=== PATIENT | female | born 1990 | race Caucasian/White ===

== ENCOUNTER 2020-11-25 13:14 | Emergency (ER) | payer MEDICAID ==
[~2020-11-25] VITALS: Ht 160 cm; Wt 82.6 kg
[2020-11-25 13:15] VITALS: BP_SYST 125
[2020-11-25 13:50] LABS: BASOPHILS % (AUTO) 0.6 % (0.0-2.0); EOSINOPHILS # (AUTO) 0.1 K/uL (0.0-0.4); EOSINOPHILS % (AUTO) 1.6 % (0.0-4.0); HEMATOCRIT 41.2 % (36-48); HEMOGLOBIN 13.6 g/dL (12.0-16.0); LYMPHOCYTES % (AUTO) 30.3 % (20.5-51.5); MEAN CORPUSCULAR HEMOGLOBIN 29 pg (27-31); MEAN CORPUSCULAR HGB CONC 33 % (32-36); MEAN CORPUSCULAR VOLUME 87 fL (79.0-98.0); MONOCYTES # (AUTO) 0.4 K/uL (0.0-1.0); MONOCYTES % (AUTO) 6.5 % (1.7-9.3); PLATELET COUNT (AUTO) 351 K/uL (130-430); RED BLOOD CELL COUNT(AUTO) 4.71 MIL/uL (4.2-6.2); RED CELL DISTRIBUTION WIDTH 13.2 % (9.0-15.0); WHITE BLOOD COUNT (AUTO) 6.6 K/uL (4.8-10.8)
[2020-11-25 13:58] LABS: ANION GAP 10 (5-15); CALCIUM 8.8 mg/dL (8.4-11.0); CHLORIDE 104 mmol/L (98-107); CREATININE 0.71 mg/dL (0.55-1.30); GLUCOSE 99 mg/dL (70-99); POTASSIUM 4.2 mmol/L (3.5-5.1); SODIUM SERUM 140 mmol/L (136-145); UREA NITROGEN, BLOOD 7 mg/dL (8-21)
[2020-11-25 13:59] LABS: GFR AFRICAN AMERICAN 126 mL/min (>90)
[2020-11-25] MEDS ORDERED: KETOROLAC TROMETHAMINE 60 MG/2 ML VIAL IM ONE (14:30)
[2020-11-25 15:00] VITALS: BP_SYST 125
== END 2020-11-25 15:00 | disposition home or self-care (01) ==
LOC: SED 13:14
DX: R07.89 Other chest pain (principal)
CPT/HCPCS: 36415; 71045; 80048; 81025; 84484; 85025; 96372; 99284; J1885; 93005